=== PATIENT | male | born 1990 | race Hispanic/Latino ===

== ENCOUNTER 2017-06-29 06:33 | Emergency (ER) | payer OTHER ==
[2017-06-29 07:17] LABS: #Basophils 0.1 thou/uL (0.0-0.2); #Eosinphils 0.1 thou/uL (0.0-0.7); #Lymphocytes 2.2 thou/uL (1.20-3.40); #Monocytes 0.6 thou/uL (0.11-0.59); #Neutrophils 9.4 thou/uL (1.40-6.50); %Basophils 0.6 % (0.0-1.0); %Lymphocytes 17.4 % (21.0-51.0); %Monocytes 4.5 % (0.0-10.0); Hematocrit 55.2 % (42.0-52.0); Mean Platelet Volume 7.9 fL (7.4-10.4); Red Blood Cell (RBC) Count 5.44 mill/uL (4.70-6.10); White Blood Cell (WBC) Count 12.3 thou/uL (4.8-10.8)
[2017-06-29 07:32] LABS: Lactic Acid - Sepsis 1.8 mmol/L (0.5-2.2)
--- NOTE | 2017-06-29 07:33 | RAD ---
CHEST 1 VIEW: HISTORY: A 27-year-old male with cough with white sputum for 2 days, history of asthma. FINDINGS: Monitor leads overlie the chest. Heart size is normal. There is some minimal increased opacity in t he right infrahilar region possibly representing a small focus of pneumonitis. The left lung is mike r. No pleural effusion. IMPRESSION: Questionable minimal alveolar opacity in the right infrahilar region which could represent a small fo cus of pneumonia. POS: [facility]
[2017-06-29 07:37] LABS: ALT (SGPT) 63 U/L (8-55); AST (SGOT) 28 U/L (5-34); Alkaline Phosphatase 79 U/L (40-150); Anion Gap 11 mmol/L (10-20); BUN (Urea Nitrogen) 8 mg/dL (8.9-20.6); Bilirubin, Total 0.6 mg/dL (0.2-1.2); Calc. Creatinine Clearance 0 mL/min (70-130); Calcium 9.2 mg/dL (7.8-10.44); Carbon Dioxide 32 mmol/L (22-29); Chloride 101 mmol/L (98-107); Estimated GFR-MDRD Greater than 90; Globulin 4.3 g/dL (2.4-3.5); Protein, Total 8.3 g/dL (6.0-8.3)
[2017-06-29] MEDS ORDERED: methylPREDNISolone Sod Succ/PF 125 MG/2 ML VIAL ONE (07:46)
[2017-06-29] MEDS ORDERED: Acetaminophen 500 MG TAB ONE (07:46)
[2017-06-29] MEDS ORDERED: Water For Inject, Bacteriostat 30 ML ONE (07:47)
[2017-06-29] MEDS ORDERED: Cefepime 2 GM, Syringe 2.5 ML in Sterile Water 10 ML SLOW IVP SCH (08:30)
[2017-06-29] MEDS ORDERED: Azithromycin 500 MG VIAL ONE (08:41)
[2017-06-29] MEDS ORDERED: Ibuprofen 800 MG TAB ONE (09:59)
[2017-06-29 10:36] LABS: Bilirubin Negative (Negative); Blood, Urine Negative (Negative); Glucose, Urine (Dipstick) Negative (Negative); Ketone, Urine Negative (Negative); Nitrite Negative (Negative); Protein, Urine (Dipstick) Negative (Neg-Trace); Urobilinogen 0.2 mg/dL (0.2-1.0)
== END 2017-06-29 11:39 | disposition short-term general hospital (02) ==
LOC: ERS 06:33
DX: A41.9 Sepsis, unspecified organism (principal); J18.9 Pneumonia, unspecified organism; J45.909 Unspecified asthma, uncomplicated; Q90.9 Down syndrome, unspecified
CPT/HCPCS: 71010; 80053; 81003; 83605; 85025; 87040; 87086; 93005; 94640; 94760; 96361; 96365; 96375; A4216; J0456; J0692; J0696; J2930; J7620